=== PATIENT | male | born 1985 | race Caucasian/White ===

== ENCOUNTER 2018-06-07 13:01 | Emergency (ER) | payer OTHER ==
[2018-06-07] VITALS (19 sets, daily range): BP systolic 103–145; BP diastolic 58–90
[~2018-06-07] VITALS: Ht 170.2 cm; Wt 68.0 kg
[~2018-06-07 13:01] MED LIST: VENTOLIN HFA18 GM INH
[2018-06-07] MEDS ORDERED: DiphenhydrAMINE 50mg/ml Inj ONE (13:17)
[2018-06-07] MEDS ORDERED: Haloperidol 5mg/ml Inj ONE (13:17)
[2018-06-07] MEDS ORDERED: LORazepam Inj 2mg/ml 1ml ONE (13:18)
[2018-06-07] MEDS: LORazepam Inj 2mg/ml 1ml IM ONE ×2 (13:19→13:30)
[2018-06-07] MEDS: Haloperidol 5mg/ml Inj IM ONE ×2 (13:19→13:30)
[2018-06-07] MEDS ORDERED: DiphenhydrAMINE 50mg/ml Inj IM ONE (13:30)
[2018-06-07 13:50] LABS: BASOPHILS % (AUTO) 0.6 % (0.0-2.0); EOSINOPHILS % (AUTO) 0.3 % (0.0-3.0); HEMATOCRIT 38.7 % (42.0-52.0); HEMOGLOBIN 13.4 G/DL (14.2-18.0); LYMPHOCYTES % (AUTO) 7.9 % (20.0-45.0); MEAN CORPUSCULAR VOLUME 94 FL (80-99); MONOCYTES % (AUTO) 6.8 % (1.0-10.0); NEUTROPHILS % (AUTO) 84.5 % (45.0-75.0); PLATELET COUNT 205 K/UL (150-450); RED BLOOD COUNT 4.12 M/UL (4.70-6.10); WHITE BLOOD COUNT 11.5 K/UL (4.8-10.8)
[2018-06-07 14:03] LABS: ANION GAP 13 mmol/L (5-15); BLOOD UREA NITROGEN 20 mg/dL (7-18); CALCIUM 9.4 MG/DL (8.5-10.1); CARBON DIOXIDE 24 MMOL/L (21-32); CHLORIDE 107 MMOL/L (98-107); CREATININE 1.2 MG/DL (0.55-1.30); SODIUM 144 MMOL/L (136-145)
[2018-06-07 14:15] LABS: ALANINE AMINOTRANSFERASE 22 U/L (12-78); ALBUMIN/GLOBULIN RATIO 1.2 (1.0-2.7); ALKALINE PHOSPHATASE 58 U/L (46-116); ASPARTATE AMINO TRANSFERASE 35 U/L (15-37); BILIRUBIN,TOTAL 1.3 MG/DL (0.2-1.0)
[2018-06-07 14:17] LABS: BILIRUBIN,DIRECT 0.3 MG/DL (0.0-0.3)
[2018-06-07] MEDS ORDERED: LORazepam Inj 2mg/ml 1ml IM ONE (15:15)
[2018-06-07] MEDS ORDERED: Haloperidol 5mg/ml Inj IM ONE (15:15)
--- NOTE | 2018-06-07 16:04 | Emergency Room Report ---
History of Present Illness General Chief Complaint: Behavioral Complaint Source: Patient, EMS (Otis Montero MD) Present Illness HPI 32-year-old male presents ED for behavioral evaluation. Brought in by EMS [employer]. Was found banging his head on light poles outside. Bystanders called 911. Upon arrival patient very agitated and combative. In restraints. Patient is unable to provide any additional history at this time. Unclear whether patient has psychiatric history. No other aggravating relieving factors. Denies any other associated symptoms (Otis Montero MD) Allergies: Coded Allergies: No Known Allergies (Unverified , 06/07/18) Patient History Past Medical History: asthma Past Surgical History: none Pertinent Family History: none Social History: Denies: smoking, alcohol use, drug use Immunizations: UTD Reviewed Nursing Documentation: PMH: Agreed; PSxH: Agreed (Otis Montero MD) Nursing Documentation-PMH Hx Asthma: Yes (Otis Montero MD) Review of Systems All Other Systems: limited (Otis Montero MD) Physical Exam Vital Signs Date Time Temp Pulse Resp B/P (MAP) Pulse Ox O2 Delivery O2 Flow Rate FiO2 06/07/18 12:56 90 20 145/90 100 Room Air 06/07/18 13:45 98.0 Sp02 EP Interpretation: reviewed, normal General Appearance: alert, GCS 15, non-toxic, other - agitated Head: normocephalic Eyes: bilateral eye normal inspection, bilateral eye PERRL ENT: normal ENT inspection Neck: normal inspection Respiratory: chest non-tender, lungs clear, normal breath sounds, speaking full sentences Cardiovascular #1: regular rate, rhythm, no edema Gastrointestinal: normal bowel sounds, non tender, soft, non-distended, no guarding, no rebound Rectal: deferred Genitourinary: no CVA tenderness Musculoskeletal: normal inspection Neurologic: other - agitated Psychiatric: no suicidal/homicidal ideation, other - agitated Skin: normal inspection Lymphatic: normal inspection (Otis Montero MD) Medical Decision Making Diagnostic Impression: Primary Impression: Behavioral disorder ER Course Please see above note. Patient signed out to me. Sedated. VS have been stable. No longer violent and restraints removed. Tox + amphetamine and THC Not ambulatory and not answer questions. Signed out to Dr. Veloz. (Yoseph Leung M.D.) ER Course The patient was cleared by Dr. Gomes of psychiatry to go home for further outpatient psychiatric treatment and care. Please see her note. (Anita Caceres DO) Last Vital Signs Date Time Temp Pulse Resp B/P (MAP) Pulse Ox O2 Delivery O2 Flow Rate FiO2 06/07/18 15:45 98.5 89 20 100 Room Air 06/07/18 13:06 145/90 (Otis Montero MD) Referrals: [facility],REFERRING (PCP) Otis Montero MD Jun 07, 2018 16:03 Yoseph Leung M.D. Jun 08, 2018 06:53 Anita Caceres DO Jun 08, 2018 21:54
[2018-06-07] MEDS ORDERED: Midazolam 2mg/2ml Inj ONE (17:57)
[2018-06-08] VITALS (7 sets, daily range): BP systolic 100–134; BP diastolic 52–74
--- NOTE | 2018-06-08 23:56 | Consultation ---
History of Present Illness General Date patient seen: Jun 08, 2018 Chief Complaint: Behavioral Complaint Present Illness HPI 32-year-old male presents ED for behavioral evaluation. the pt is a chronic meth user he was very agitated and combative last night. During my eval he was calm and cooperative. no psychotic or manic sxs/ the pt was not endorsing si/ hi. [place] he denied psych issues Allergies: Coded Allergies: No Known Allergies (Unverified , 06/07/18) Medication History Scheduled Albuterol Sulfate (Ventolin Hfa), 2 PUFFS INH EVERY 6 HOURS, (Reported) Patient History Limited by: medical condition History Provided By: Patient, Medical Record, PMD Healthcare decision maker Resuscitation status Advanced Directive on File Review of Systems Psychiatric: Reports: prior hx, anxiety, depressed feelings, emotional problems Physical Exam General Appearance: no apparent distress, alert Neurologic: oriented x 3, responsive, depressed affect Last 24 Hour Vital Signs Date Time Temp Pulse Resp B/P (MAP) Pulse Ox O2 Delivery O2 Flow Rate FiO2 06/08/18 22:00 98.0 79 18 134/74 99 Room Air 97.3 06/08/18 15:30 97.3 79 18 105/70 99 Room Air 97.3 06/08/18 11:30 98.0 78 16 110/67 99 Room Air 98.0 06/08/18 07:27 97.3 74 16 109/68 99 Room Air 97.3 06/08/18 05:21 97.4 60 20 101/52 99 Room Air 97.4 06/08/18 03:30 97.7 78 16 105/62 98 Room Air 97.7 06/08/18 01:30 97.7 88 16 100/55 96 Room Air 97.7 Intake and Output 06/07/18 06/08/18 19:00 07:00 Output Total 600 ml Balance -600 ml Output Urine Total 600 ml # Voids 1 Height (Feet): 5 Height (Inches): 7.00 Weight (Pounds): 150 Assessment/Plan Status: stable Assessment/Plan meth abuse mdd the pt is not at imminent dts/dto the pt maybe discharged with follow up plan Lissette Gomes MD Jun 08, 2018 23:56
== END 2018-06-08 22:10 | disposition home or self-care (01) ==
LOC: EDBD 13:01 → EMR 13:30
DX: F91.9 Conduct disorder, unspecified (principal); J45.909 Unspecified asthma, uncomplicated
CPT/HCPCS: 36415; 80053; 80307; 80329; 82248; 85025; 96372; 99285; J1200; J1630; J2250